=== PATIENT | male | born 1985 | race Caucasian/White ===

== ENCOUNTER 2020-09-15 04:56 | Emergency (ER) | payer SELFPAY ==
[~2020-09-15] VITALS: Ht 170.2 cm; Wt 59.0 kg
[2020-09-15] MEDS ORDERED: LORazepam 0.5 MG TAB PO STA (05:26)
[2020-09-15] MEDS ORDERED: SODIUM CHLORIDE 0.9% 1,000 ML IV STA (05:26)
[2020-09-15 05:41] LABS: Basophils # (auto) 0.1 10 ^3/uL (0-0.2); Basophils % (auto) 0.5 % (0.0-2.0); Eosinophils # (auto) 0 10 ^3/uL (0-0.8); Eosinophils % (auto) 0.1 % (0.0-7.0); Hematocrit 41.7 % (41.0-53.0); Hemoglobin 14.5 g/dL (13.5-17.5); Lymphocytes # (auto) 1.6 10 ^3/uL (0.4-5.4); Lymphocytes % (auto) 11.5 % (10.0-50.0); Mean Corpuscular Hemoglobin 33.4 pg (28.0-32.0); Mean Corpuscular Hgb Conc. 34.9 g/dL (32.0-36.0); Mean Corpuscular Volume 95.8 fL (80.0-100.0); Monocytes # (auto) 1.7 10 ^3/uL (0-1.3); Monocytes % (auto) 12.2 % (0.0-12.0); Neutrophils # (auto) 10.8 10 ^3/uL (1.6-8.6); Neutrophils % (auto) 75.7 % (37.0-80.0); Platelet Count (auto) 331 10^3/uL (140-450); Red Blood Cells 4.35 10^6/uL (4.5-5.90); Red Cell Distribution Width 13.3 % (11.8-14.3); White Blood Cell 14.3 10^3/uL (4.4-10.8)
[2020-09-15 05:52] LABS: Albumin 4.1 g/dL (3.4-5.0); Anion Gap 10 (5-15); BUN/Creatinine Ratio 17.3; Blood Urea Nitrogen 22 mg/dL (7-18); Calcium 8.8 mg/dL (8.5-10.1); Carbon Dioxide 24 mmol/L (21-32); Chloride 101 mmol/L (98-107); GFR African American 84 mL/min; GFR Non-African American 69 mL/min; Glucose 98 mg/dL (74-106); Potassium 3.1 mmol/L (3.5-5.1); Sodium 135 mmol/L (136-145)
[2020-09-15 06:01] LABS: Blood Alcohol < 3.0 mg/dL (0-5)
[2020-09-15 06:03] LABS: Alanine Aminotransferase 27 U/L (16-61); Alkaline Phosphatase 65 U/L (45-117); Aspartate Aminotransferase 34 U/L (15-37); Total Protein 7.9 g/dL (6.4-8.2)
[2020-09-15] MEDS ORDERED: FAMOTIDINE 20 MG TAB PO ONE (07:00)
[2020-09-15] MEDS ORDERED: SODIUM CHLORIDE 0.9% 1,000 ML IV ONE (07:00)
[2020-09-15] MEDS ORDERED: DONNATAL 5ml ORAL Elix (BELLADONNA ALK-PHENOBARB) PO ONE (07:00)
[2020-09-15] MEDS ORDERED: SODIUM CHLORIDE 0.9% 1,000 ML IVB ONE (07:00)
[2020-09-15] MEDS ORDERED: ALUM & MAG HYDROX-SIMETH LIQ(MAALOX) 30 ML PO ONE (07:00)
[2020-09-15] MEDS ORDERED: LORazepam 2MG/ML-1ML VIAL IV ONE (07:00)
[2020-09-15 07:42] LABS: Magnesium 2.5 mg/dL (1.6-2.6)
[2020-09-15] MEDS ORDERED: POTASSIUM EFFERVESENT TAB 25 MEQ PO ONE (08:15)
[2020-09-15 10:00] VITALS: BP 126/74
== END 2020-09-15 10:31 | disposition left against medical advice (07) ==
LOC: EDBD 04:56 → ER 04:56
DX: F10.139 Alcohol abuse with withdrawal, unspecified (principal); E87.6 Hypokalemia
CPT/HCPCS: 36415; 71046; 80053; 80320; 83690; 83735; 84484; 85025; 93005; 96361; 96374; 99285; J2060